=== PATIENT | male | born 1990 | race Caucasian/White ===

== ENCOUNTER 2022-06-21 19:40 | Emergency (ER) | payer BC, SELFPAY ==
--- NOTE | ~2022-06-21 | US_ITS ---
EXAMINATION: US SCROTUM WITH DOPPLER CLINICAL INFORMATION: Testicular swelling. COMPARISON: None TECHNIQUE: A sonogram of the scrotum was performed assessing landry-scale appearance and color Doppler flow. Spectral Doppler analysis of the arterial and venous flow were performed in the testes bilaterally. FINDINGS: The testicles have normal size, contour and echotexture. No testicular microlithiasis or mass. The right testicle is 4.7 x 2.7 x 3.1 cm and left testicle 4.2 x 2.5 x 2.9 cm. Color Doppler images with spectral waveforms show presence of normal arterial flow within each testicle. No hydrocele. The right epididymis is normal. The left epididymal tail is mildly thickened, mildly heterogeneous and has slightly hypervascular appearance on the color Doppler images. There is a left-sided varicocele with scrotal veins measuring up to 0.34 cm diameter. US/US scrotum doppler IMPRESSION: * The testicles are normal. * The ultrasound findings raise suspicion for mild left-sided epididymitis. * A left-sided varicocele is noted.
--- NOTE | ~2022-06-21 | US_ITS ---
EXAMINATION: US SCROTUM WITH DOPPLER CLINICAL INFORMATION: Testicular swelling. COMPARISON: None TECHNIQUE: A sonogram of the scrotum was performed assessing landry-scale appearance and color Doppler flow. Spectral Doppler analysis of the arterial and venous flow were performed in the testes bilaterally. FINDINGS: The testicles have normal size, contour and echotexture. No testicular microlithiasis or mass. The right testicle is 4.7 x 2.7 x 3.1 cm and left testicle 4.2 x 2.5 x 2.9 cm. Color Doppler images with spectral waveforms show presence of normal arterial flow within each testicle. No hydrocele. The right epididymis is normal. The left epididymal tail is mildly thickened, mildly heterogeneous and has slightly hypervascular appearance on the color Doppler images. There is a left-sided varicocele with scrotal veins measuring up to 0.34 cm diameter. US/US scrotum IMPRESSION: * The testicles are normal. * The ultrasound findings raise suspicion for mild left-sided epididymitis. * A left-sided varicocele is noted.
[2022-06-21 19:49] VITALS: BP 179/99; PULSE 98; RESP 20; TEMP 37.2; O2SAT 99; BMI 37.3
[2022-06-21 20:00] LABS: MANUAL DIFF FLAG NO
[2022-06-21 20:06] LABS: Basophils Percent Auto 0.2 % (0-2); Eosinophils Absolute Auto 0.1 X10*3/uL (0.0-0.4); Eosinophils Percent Auto 0.6 % (0-4); Hematocrit 43.8 % (42.0-52.0); Hemoglobin 15.4 g/dl (14.0-18.0); Imm Gran Abs Auto 0.02 X10*3/uL (0.00-0.03); Imm Gran Pct Auto 0.2 % (0.0-0.4); Lymphocytes Absolute Auto 2.2 X10*3/uL (1.2-4.9); Lymphocytes Percent Auto 27.5 % (20-40); Mean Corpuscular HGB Conc 35.2 g/dl (31.0-36.0); Mean Corpuscular Hemoglobin 31.1 pg (27.0-33.0); Mean Corpuscular Volume 88.5 fL (80.0-98.0); Mean Platelet Volume 9.8 fL (9.4-12.4); Monocytes Absolute Auto 0.7 X10*3/uL (0.1-1.2); Neutrophils Percent Auto 62.5 % (45-73); Platelet Count 332 X10*3/uL (160-400); Red Blood Count 4.95 X10*6/uL (4.60-5.80); Red Cell Distribution Width 12.4 % (11.0-16.0)
[2022-06-21 20:23] LABS: Alanine Aminotransferase 39 U/L (0-40); Albumin Level 4.9 g/dL (3.5-5.0); Alkaline Phosphatase 62 U/L (39-117); Anion Gap 17 (12-20); Aspartate Amino Transferase 23 U/L (5-37); Bilirubin Direct 0.2 mg/dL (0.0-0.5); Bilirubin Total 0.5 mg/dL (0.0-1.0); Blood Urea Nitrogen 9 mg/dL (9-16); Calcium 9.7 mg/dL (8.4-10.2); Carbon Dioxide 26 mmol/L (22-29); Chloride 102 mmol/L (96-108); Creatinine Clr Calc Pharmacy 137.9; Estimated Glomerular Filt Rate > 60; Glucose Random 88 mg/dL (60-115); Lipase 48 U/L (8-78); Potassium 3.9 mmol/L (3.3-5.1); Sodium 141 mmol/L (135-145); Total Protein 7.8 g/dL (6.5-8.0)
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
[2022-06-21 21:12] VITALS: BP 144/101; PULSE 101; RESP 22; TEMP 36.9; O2SAT 98
[2022-06-21 21:15] LABS: Appearance Urine Clear; Color Urine Yellow; Glucose Urine UA Negative (Negative); Leukocyte Esterase Urine Negative (Negative); Nitrite Urine Negative (Negative); PH 5.5 (5.0-9.0); Specific Gravity - Urine 1.025 (1.005-1.025); Urine Blood Negative (Negative); Urine Ketones Trace mg/dL (Negative); Urine Protein Negative (Neg-Trace)
--- NOTE | 2022-06-21 21:22 | PC.NURSE ---
Pt V/s are elevated, pt has hx of anxiety. Pt urine was sent down. will continue to monitor.
[2022-06-21] MEDS: cefTRIAXone sodium 500 MG, Lidocaine HCl 1 % MPF 1 ML IM (23:00)
== END 2022-06-21 23:09 | disposition home or self-care (01) ==
PROVIDERS: Emergency Provider Emergency Medicine; PCP Nurse Practitioner Family
DX: N45.1 Epididymitis (principal); N50.812 Left testicular pain; F17.200 Nicotine dependence, unspecified, uncomplicated; Z71.6 Tobacco abuse counseling; Z79.899 Other long term (current) drug therapy
CPT/HCPCS: 36415; 76870; 80053; 81003; 82248; 83690; 85025; 93975; 96372; 99284; J0696